=== PATIENT | female | born 1980 | race Caucasian/White ===

== ENCOUNTER 2020-08-03 01:39 | Day surgery (SDC) | payer OTHER ==
[~2020-08-03] VITALS: Ht 165.1 cm; Wt 90.9 kg
[2020-08-03] VITALS (7 sets, daily range): BP systolic 138–161; BP diastolic 67–89
--- NOTE | 2020-08-03 01:35 | HPEPDOC ---
[facility] Medical History & Physical Date of Admission Aug 03, 2020 Date of Service: Aug 03, 2020 History and Physical CHIEF COMPLAINT: L flank pain HISTORY OF PRESENT ILLNESS: 39 yo F with a hx of ADHD, transfered from [facility] where she was diagnosed with SIRS wo sepsis 2/2 an obstructing L ureteral stone with hydronephrosis. She had presented to [facility] initially on 07/19/20 for L flank pain, and CT and abdo US showed L ovarian cyst (2.5 cm, wo torsion), and non obstructing L renal stones. Patient returned to [facility] ER with worsening pain, and repeat CT showed an obstructing L ureteral stone with hydronephrosis. She was tachycardic with a WBC count 17.8, meeting SIRS criteria without sepsis. Vitals signs were otherwise intact, no fever. Patient was given 2L NS bolus and 1 g dose of ceftriaxone. Patient was transfered to [facility] for urology consultation, and patient's hx was reviewed by Dr. Lindsey. She is planned for OR in am on 08/03/19. At present, she reports 7/10 L flank pain, and denies dysuria, CP, SOB, palpitations, n/v/d or fever/chills. COVID negative prior to arrival from [facility] Patient admitted to hospitalist service with urology on consultation. PAST MEDICAL HISTORY: ADHD PAST SURGICAL HISTORY: section x 2 SOCIAL HISTORY: smokes 7 cigarettes per day denies etoh denies illicits FAMILY HISTORY: father - DM2 ALLERGIES: Please see below. REVIEW OF SYSTEMS: pertinent findings per [facility] HOME MEDICATIONS: Please see below. PHYSICAL EXAMINATION: VITAL SIGNS: please see below GENERAL APPEARANCE: crying in pain, sitting upright in bed. HEENT: PERRLA, EOMI. CARDIOVASCULAR: RRR, normal S1, S2. LUNGS: CTAB. ABDOMEN: L flank pain to palpation, mild. MUSCULOSKELETAL: no CVA tenderness bilaterally. EXTREMITIES: no edema. NEUROLOGICAL: no focal neuro deficits. PSYCHIATRIC: AAO x 3. LABORATORY DATA: See below. IMAGING: CT abdo on 08/02/20 (obtained at [facility]), report reviewed: L sided 8 mm obstructing ureteral stone with L sided hydronephrosis and perinephric stranding. MICROBIOLOGY: Please see below. ASSESSMENT: 39 yo w a hx of ADHD, transferred from [facility] where she was diagnosed with SIRS wo sepsis 2/2 an obstructing L ureteral stone with hydronephrosis. Dr. Lindsey was consulted, and patient is planned for OR in am. . PLAN: #SIRS 2/2 obstructing L ureteral stone w hydronephrosis - c/w NS 125 cc/hr - UA w reflex to cx - ceftriaxone 1g q24h - urology consulted, Dr. Lindsey taking pt to OR in am - tylenol for fevers DVT ppx: SCDs, TEDs. Early ambulation. Home Medications Scheduled Dextroamphetamine/Amphetamine (Adderall Xr 20 mg Capsule) 20 Mg Cap.er.24h, 1 CAP PO QAM Dextroamphetamine/Amphetamine (Adderall Xr 10 mg Capsule) 10 Mg Cap.er.24h, 1 CAP PO DAILY TAKES AT NOON Norgestimate-Ethinyl Estradiol (Norg-Ee 0.18-0.215-0.25/0.025) 1 Each Tablet, 1 TAB PO DAILY Scheduled PRN Oxycodone HCl/Acetaminophen (Oxycodone-Acetaminophen 5-325) 1 Each Tablet, 1 TAB PO Q4H PRN for PAIN Allergies Coded Allergies: No Known Allergies (Verified Allergy, Unknown, 08/03/20) A-FIB/CHADSVASC A-FIB History Current/History of A-Fib/PAF?: No Current PO Anticoag Therapy: No RYAN JUDD MD Aug 03, 2020 01:35
[2020-08-03] MEDS ORDERED: OXYC1TAB23 PO (02:38)
[2020-08-03] MEDS ORDERED: NORG1TAB4 PO (02:38)
[2020-08-03] MEDS ORDERED: ADDE20CA3 PO (02:38)
[2020-08-03] MEDS ORDERED: ADDE10CA3 PO (02:38)
[2020-08-03] MEDS ORDERED: MORPHINE 2 MG/ML 1ML VIAL (J2270) IV PRN (02:45)
--- NOTE | 2020-08-03 02:51 | HPEPDOC ---
[facility] Medical History & Physical Date of Admission Aug 03, 2020 Date of Service: Aug 03, 2020 History and Physical CHIEF COMPLAINT: L flank pain HISTORY OF PRESENT ILLNESS: 39 yo F with a hx of ADHD, transfered from [facility] where she was diagnosed with SIRS wo sepsis 2/2 an obstructing L ureteral stone with hydronephrosis. She had presented to [facility] initially on 07/19/20 for L flank pain, and CT and abdo US showed L ovarian cyst (2.5 cm, wo torsion), and non obstructing L renal stones. Patient returned to [facility] ER with worsening pain, and repeat CT showed an obstructing L ureteral stone with hydronephrosis. She was tachycardic with a WBC count 17.8, meeting SIRS criteria without sepsis. Vitals signs were otherwise intact, no fever. Patient was given 2L NS bolus and 1 g dose of ceftriaxone. Patient was transfered to [facility] for urology consultation, and patient's hx was reviewed by Dr. Lindsey. She is planned for OR in am on 08/03/19. At present, she reports 7/10 L flank pain, and denies dysuria, CP, SOB, palpitations, n/v/d or fever/chills. COVID negative prior to arrival from [facility] Patient admitted to hospitalist service with urology on consultation. PAST MEDICAL HISTORY: ADHD PAST SURGICAL HISTORY: section x 2 SOCIAL HISTORY: smokes 7 cigarettes per day denies etoh denies illicits FAMILY HISTORY: father - DM2 ALLERGIES: Please see below. REVIEW OF SYSTEMS: pertinent findings per [facility] HOME MEDICATIONS: Please see below. PHYSICAL EXAMINATION: VITAL SIGNS: please see below GENERAL APPEARANCE: crying in pain, sitting upright in bed. HEENT: PERRLA, EOMI. CARDIOVASCULAR: RRR, normal S1, S2. LUNGS: CTAB. ABDOMEN: L flank pain to palpation, mild. MUSCULOSKELETAL: no CVA tenderness bilaterally. EXTREMITIES: no edema. NEUROLOGICAL: no focal neuro deficits. PSYCHIATRIC: AAO x 3. LABORATORY DATA: See below. IMAGING: CT abdo on 08/02/20 (obtained at [facility]), report reviewed: L sided 8 mm obstructing ureteral stone with L sided hydronephrosis and perinephric stranding. MICROBIOLOGY: Please see below. ASSESSMENT: 39 yo w a hx of ADHD, transferred from [facility] where she was diagnosed with SIRS wo sepsis 2/2 an obstructing L ureteral stone with hydronephrosis. Dr. Lindsey was consulted, and patient is planned for OR in am. . PLAN: #SIRS 2/2 obstructing L ureteral stone w hydronephrosis - c/w NS 125 cc/hr - UA w reflex to cx - ceftriaxone 1g q24h - urology consulted, Dr. Lindsey taking pt to OR in am - tylenol for fevers DVT ppx: SCDs, TEDs. Early ambulation. Home Medications Scheduled Dextroamphetamine/Amphetamine (Adderall Xr 20 mg Capsule) 20 Mg Cap.er.24h, 1 CAP PO QAM Dextroamphetamine/Amphetamine (Adderall Xr 10 mg Capsule) 10 Mg Cap.er.24h, 1 CAP PO DAILY TAKES AT NOON Norgestimate-Ethinyl Estradiol (Norg-Ee 0.18-0.215-0.25/0.025) 1 Each Tablet, 1 TAB PO DAILY Scheduled PRN Oxycodone HCl/Acetaminophen (Oxycodone-Acetaminophen 5-325) 1 Each Tablet, 1 TAB PO Q4H PRN for PAIN Allergies Coded Allergies: No Known Allergies (Verified Allergy, Unknown, 08/03/20) A-FIB/CHADSVASC A-FIB History Current/History of A-Fib/PAF?: No Current PO Anticoag Therapy: No RYAN JUDD MD Aug 03, 2020 02:51
[2020-08-03] MEDS ORDERED: ACETAMINOPHEN TAB 650MG DOSE (2X325MG) PO PRN (03:00)
[2020-08-03] MEDS ORDERED: MOM 30ML SUSPENSION UDC PO PRN (03:00)
[2020-08-03] MEDS ORDERED: MAALOX 30 ML SUSP *UDC PO PRN (03:00)
[2020-08-03] MEDS: NS 1,000 ML IV SCH ×2 (03:03→10:50)
[2020-08-03] MEDS ORDERED: MORPHINE 2 MG/ML 1ML VIAL (J2270) IV ONE ×2 (03:30→06:15)
[2020-08-03] MEDS ORDERED: cefTRIAXone SOD 1 GM in D5W MINI-BAG PLUS 50 ML IV SCH (06:00)
[2020-08-03] MEDS ORDERED: ceFAZolin SOD 2 GM in IV 1 EA IV ONE (06:00)
[2020-08-03] MEDS ORDERED: KETOROLAC 30 MG/ML 1ML VIAL IV ONE (08:15)
[2020-08-03] MEDS ORDERED: DOCUSATE SODIUM 100MG CAPSULE PO SCH (09:00)
[2020-08-03 09:04] LABS: HEMATOCRIT 43.1 % (36.0-47.0); HEMOGLOBIN 14.2 g/dl (12.0-15.5); MEAN CORPUSCULAR HEMOGLOBIN 28.9 pg (27.0-33.0); MEAN CORPUSCULAR HGB CONC 32.9 g/dl (32.0-36.5); MEAN CORPUSCULAR VOLUME 87.8 fl (80.0-96.0); PLATELET COUNT, AUTOMATED 239 10^3/uL (150-450); RED BLOOD COUNT 4.91 10^6/uL (4.00-5.40)
[2020-08-03 09:27] LABS: ALBUMIN 3.3 GM/DL (3.2-5.2); BILIRUBIN,TOTAL 0.4 MG/DL (0.2-1.0); CALCIUM LEVEL 8.5 MG/DL (8.5-10.1); CREATININE FOR GFR 1.29 MG/DL (0.55-1.30); POTASSIUM SERUM 4.3 MEQ/L (3.5-5.1); TOTAL PROTEIN 6.5 GM/DL (6.4-8.2)
[2020-08-03] MEDS ORDERED: KETOROLAC 30 MG/ML 1ML VIAL IV PRN (10:45)
[2020-08-03] MEDS ORDERED: MORPHINE 4 MG/ML 1ML VIAL/SYRINGE (J2270) IV ONE (10:45)
[2020-08-03] MEDS ORDERED: LIDOCAINE 2% 100MG/5ML SDV (FOR ANES.) ONE ×2 (11:58→15:58)
[2020-08-03] MEDS ORDERED: CONRAY-60 60% 50ML VIAL (Q9961) ONE (15:48)
[2020-08-03] MEDS ORDERED: fentaNYL 100 MCG/2 ML INJECTION (J3010) ONE (15:57)
[2020-08-03] MEDS ORDERED: LIDOCAINE 2% MDV 20ML VIAL ONE (15:57)
[2020-08-03] MEDS ORDERED: propofoL 200 MG/20 ML VIAL ONE ×2 (15:57)
[2020-08-03] MEDS ORDERED: MIDAZOLAM INJ 2MG/2ML VIAL (J2250 PER 1MG) ONE ×2 (15:58)
[2020-08-03] MEDS ORDERED: ceFAZolin 2 GM/D5W 50 ML IV BAG (J0690 PER 500MG) ONE ×2 (16:05)
[2020-08-03] MEDS ORDERED: dexameTHASONE 4 MG/ML 1ML VIAL (J1100 PER 1MG) ONE (16:45)
[2020-08-03] MEDS ORDERED: ONDANSETRON 4MG/2ML VIAL ONE ×2 (16:45)
[2020-08-03] MEDS ORDERED: CONRAY-60 60% 50ML VIAL (Q9961) XX ONE (17:08)
--- NOTE | 2020-08-03 17:21 | SMCUROLCON ---
Urology Consultation General Date of Consultation 08/03/20 Reason For Consultation This patient is seen for Kidney Stone. History of Present Illness The patient is a 39-year-old female who presented to the emergency room for left flank pain. She states that her pain began on July 19 with left lower quadrant pain. She presented to the [facility] where an ultrasound was performed showing she had an ovarian cyst and no other abnormalities were noted other than nonobstructing left renal calculi. Over the next week, the pain persisted off and on but yesterday the pain became quite severe requiring another trip [facility]. This time a CT scan showed she has an 8 mm stone in the distal left ureter and [facility]. Past Medical History Medical History No prior history of renal calculi Surgical Hstory No previous surgeries of note Family History Significant Family History: No pertinent family hx Family History Family history of renal calculi Social History Social History Patient has 2 children, smokes 7 cigarettes a day, does not drink or use recreational drugs * Smoker: current smoker Alcohol: Denies Drugs: denies Medications Current Medications Current Medications Medications (Trade) Dose Ordered Sig/Kari Route PRN Reason Start Time Stop Time Status Last Admin Dose Admin Acetaminophen (Tylenol Tab) 650 mg Q4H PRN PO PAIN OR FEVER 08/03/20 01:30 Al Hydrox/Mg Hydrox/Simethicone (Mylanta) 30 ml DAILY PRN PO DYSPEPSIA 08/03/20 01:30 Ceftriaxone Sodium 1 gm/ Dextrose 50 ml @ 100 mls/hr Q24H IV 08/03/20 06:00 UNV Docusate Sodium (Colace) 100 mg BID PO 08/03/20 09:00 Enoxaparin Sodium (Lovenox) 40 mg DAILY SC 08/03/20 09:00 UNV Magnesium Hydroxide (Milk Of Magnesia) 30 ml DAILY PRN PO CONSTIPATION 08/03/20 01:30 Morphine Sulfate (Morphine Sulfate Inj) 2 mg Q4HP PRN IV MODERATE PAIN (PS 5-7) 08/03/20 01:30 Sodium Chloride 1,000 ml @ 125 mls/hr Q8H IV 08/03/20 01:45 Allergies Allergies: Coded Allergies: No Known Allergies (Verified Allergy, Unknown, 08/03/20) Review of Systems General: Reports: Normal Appetite; Denies: Fatigue, Malaise Constitutional: Denies: Fever, Chills, Sweats, Weakness, Malaise Eyes: Denies: Pain, Vision change ENT: Denies: Head Aches, Sore Throat, Epistaxis Skin: Denies: Rash, Lesions, Breakdown, Nail Changes Pulmonary: Denies: Dyspnea, Cough Cardiovascular: Denies Chest Pain, Denies Palpitations Gastrointestinal: Denies: Nausea, Vomiting, Abdominal Pain Genitourinary: Denies: Dysuria, Frequency, Incontinence, Hematuria Hematologic: Denies: Bruising, Bleeding Excessively Endocrine: Denies: Polydipsia, Polyphagia, Polyuria Musculoskeletal: Denies: Neck Pain, Back Pain Neurological: Denies: Weakness, Numbness, Incoordination, Change in Speech Psych: Reports: Mood Normal; Denies: Anxiety, Depression Physical Examination General Exam: Moderate Distress EYE EXAM: PERRLA, Conjunctiva & lids normal, EOMI; No: Sclera icteric ENT EXAM: Atraumatic, Mucous membr. moist/pink, Pharynx Normal Neck Exam: Supple; No: JVD, thyromegaly Chest Exam: Clear to auscultation, Normal air movement Abdomen Exam: Normal Bowel Sounds, Soft; No: Tenderness, Hepatospenomegaly Extremity Exam: Normal Pulses; No: Clubbing, Cyanosis, Edema Skin Exam: Nl turgor and temperature; No: Rash, Breakdown Neuro Exam: Normal Gait, Normal Speech, Cranial Nerves 3-12 NL, Reflexes 2+ Psych Exam: Mental status NL, Mood NL, Oriented x [address] scan confirms an 8 mm left UPJ calculus with hydronephrosis. Options were presented to the patient and she agreed to stent placement. Possible complications were discussed including infection, pain, bleeding and perforation and that this will not eliminate the stone with this procedure alone. She agreed to continue with the stent placement Plan Patient will be taken to the operating room for a cystoscopy left retrograde pyelogram and stent insertion. The stone can then be treated with extracorporeal shockwave lithotripsy at a later date. Time Spent on Consult: Time Spent / Consult (Minutes): 65 PAYAL BLANCA MD Aug 03, 2020 17:14
--- NOTE | 2020-08-03 17:25 | ROOPDOC ---
[facility] Report Of Operation Report of Operation DATE OF PROCEDURE: 08/03/20 PREPROCEDURE DIAGNOSES: Left UPJ calculus POSTPROCEDURE DIAGNOSES: Same PROCEDURE: Cystoscopy, left retrograde pyelogram and stent insertion, x-ray interpretation SURGEON: Ezequiel Lindsey MD BILLING SPECIALIST: None ANESTHESIA: Mac ESTIMATED BLOOD LOSS: Approximately 0 mL. COMPLICATIONS: None REMARKS: The stone was impacted at the UPJ making stent insertion difficult PROCEDURE NOTE: Prior to the operation, options were presented to the patient and she agreed to a stent insertion to be followed by ESWL DESCRIPTION OF PROCEDURE: Patient was placed on the table in the supine position and given a Mac anesthesia. She was then placed in lithotomy position, prepped with solution and draped in an aseptic manner. Timeout was then performed. A 22 Hungarian cystoscope was inserted into the meatus and advanced under direct vision of the 30 lens to the bladder. The bladder mucosa appeared normal and the residual orifices were in the normal anatomic position. Left ureteral orifice was then catheterized with a 5 Hungarian Pollick catheter and retrograde injection of diluted contrast showed the patient had an obstructing stone in the left UPJ area. A wire guide was passed around the stone up to the renal pelvis and a 5 Hungarian double-J stent was then passed over this wire. Passage into the renal pelvis was difficult because of the impaction of the ureteral stone but curled well when the wire was removed as did the bladder. The bladder was then drained, cystoscope was removed and the patient was awakened and sent to recovery room stable condition having tolerated procedure well. The patient will be scheduled for ESWL treatment of the left renal calculus Fluoroscopy was used and interpreted throughout the case to diagnose the stone, stone position, hydronephrosis and stent placement. EZEQUIEL LINDSEY MD Aug 03, 2020 17:25
--- NOTE | 2020-08-03 17:43 | REP ---
INDICATION: LEFT STENT PLACEMENT. COMPARISON: None TECHNIQUE: 23 seconds of fluoroscopy time was provided Dr. Lindsey for the exam. A single spot view of the abdomen was obtained using a portable C-arm device. FINDINGS: Puddles of contrast are seen in the region of the left kidney. The proximal portion of a double pigtail stent is seen in the region of the left kidney. IMPRESSION: As above <Electronically signed by Steven Cantu > 08/03/20 [id number]
[2020-08-03] MEDS ORDERED: fentaNYL 100 MCG/2 ML INJECTION (J3010) IV PRN (18:00)
[2020-08-03] MEDS ORDERED: ONDANSETRON 4MG/2ML VIAL IV PRN (18:00)
[2020-08-03] MEDS ORDERED: PERCOCET 5MG/325MG TAB PO PRN (18:00)
[2020-08-03] MEDS ORDERED: LR 1,000 ML IV SCH (18:00)
--- NOTE | 2020-08-03 18:42 | DS.PDOC ---
Discharge Summary General Date of Admission 08/03/20 Date of Discharge 07/12/21 Attending Physician: Shima Ann MD Discharge Summary HISTORY OF PRESENT ILLNESS: 39 yo F with a hx of ADHD, transfered from [facility] where she was diagnosed with SIRS wo sepsis 2/2 an obstructing L ureteral stone with hydronephrosis. She had presented to [facility] initially on 07/19/20 for L flank pain, and CT and abdo US showed L ovarian cyst (2.5 cm, wo torsion), and non obstructing L renal stones. Patient returned to [facility] ER with worsening pain, and repeat CT showed an obstructing L ureteral stone with hydronephrosis. She was tachycardic with a WBC count 17.8, meeting SIRS criteria without sepsis. Vitals signs were otherwise intact, no fever. Patient was given 2L NS bolus and 1 g dose of ceftriaxone. Patient was transfered to [facility] for urology consultation, and patient's hx was reviewed by Dr. Lindsey. She is planned for OR in am on 08/03/19. At present, she reports 7/10 L flank pain, and denies dysuria, CP, SOB, palpitations, n/v/d or fever/chills. COVID negative prior to arrival from [facility]. Patient admitted to hospitalist service with urology on consultation. HOSPITAL COURSE: Patient was taken to OR on 08/03/20 for pyelogram, stent placement. No issues intraoperative or postop. Pain had resolved post-op. VS remained stable. UA was neg, WBC believed to be reactive to stone. Patient was discharged home and advised to follow up with PCP and Dr. Lindsey urology office within 1-2 weeks after discharge. At discharge patient had no acute complaints. PAST MEDICAL HISTORY: ADHD PAST SURGICAL HISTORY: section x 2 SOCIAL HISTORY: smokes 7 cigarettes per day denies etoh denies illicits FAMILY HISTORY: father - DM2 ALLERGIES: Please see below. DISCHARGE MEDICATIONS: Please see below. PHYSICAL EXAMINATION: VITAL SIGNS: please see below GENERAL APPEARANCE: NAD, sitting up in bed HEENT: PERRLA, EOMI. CARDIOVASCULAR: RRR, normal S1, S2. LUNGS: CTAB. ABDOMEN: soft, nontender, obese, BS + in 4 quad MUSCULOSKELETAL: no CVA tenderness bilaterally. EXTREMITIES: no edema. NEUROLOGICAL: no focal neuro deficits. PSYCHIATRIC: AAO x 3. LABORATORY DATA: See below. IMAGING: Pyelogram- see notes CT abdo on 08/02/20 (obtained at [facility]), report reviewed: L sided 8 mm obstructing ureteral stone with L sided hydronephrosis and p erinephric stranding. MICROBIOLOGY: Bcx pending ASSESSMENT: 39 yo w a hx of ADHD admitted here for obstructing L ureteral stone with hydronephrosis s/p pyelogram, stent placement 08/03/20. PLAN: #Obstructing L ureteral stone w hydronephrosis s/p pyelogram, stent placement -Resolved pain and susequently resolved tachycardia with VS stable -WBC likely reactive to stone, unlikely truly sepsis 2/2 to infection- no identified UTI -Taking good PO, denies n/v -D/c home today to f/u with PCP and urology after discharge. -C/w home pain meds #ADHD -C/w home meds DISPOSITION: Discharge home today with f/u with urology, in improved condition. TIME SPENT ON DISCHARGE: Greater than 30 minutes. Vital Signs/I&Os Vital Signs Date Time Temp Pulse Resp B/P (MAP) Pulse Ox O2 Delivery O2 Flow Rate FiO2 08/03/20 18:29 98.8 67 18 147/76 (99) 97 Room Air Laboratory Data Labs 24H Laboratory Tests 2 08/03/20 08:20: Nucleated Red Blood Cells % (auto) 0.0, Anion Gap 7L, Glomerular Filtration Rate 49.0L, Calcium Level 8.5, Total Bilirubin 0.4, Aspartate Amino Transf (AST/SGOT) 15, Alanine Aminotransferase (ALT/SGPT) 23, Alkaline Phosphatase 59, Total Protein 6.5, Albumin 3.3, Albumin/Globulin Ratio 1.0L 08/03/20 08:48: Urine Color YELLOW, Urine Appearance CLEAR, Urine pH 5.0, Urine Specific [place] 1.023, Urine Protein NEGATIVE, Urine Glucose (UA) NEGATIVE, Urine Ketones 1+H, Urine Blood 2+H, Urine Nitrite NEGATIVE, Urine Bilirubin NEGATIVE, Urine Urobilinogen 0.2, Urine Leukocyte Esterase NEGATIVE, Urine WBC (Auto) 0, Urine RBC (Auto) 3, Urine Hyaline Casts (Auto) 0, Urine Bacteria (Auto) NEGATIVE, Urine Squamous Epithelial Cells 1, Urine Sperm (Auto) 08/03/20 09:16: Coronavirus (COVID-19)(PCR) NEGATIVE CBC/BMP Laboratory Tests 08/03/20 08:20 Microbiology Microbiology 08/03/20 Blood Culture, Received Pending 08/03/20 Blood Culture, Received Pending Discharge Medications Scheduled Dextroamphetamine/Amphetamine (Adderall Xr 20 mg Capsule) 20 Mg Cap.er.24h, 1 CAP PO QAM, (Reported) Dextroamphetamine/Amphetamine (Adderall Xr 10 mg Capsule) 10 Mg Cap.er.24h, 1 CAP PO DAILY, (Reported) TAKES AT NOON Norgestimate-Ethinyl Estradiol (Norg-Ee 0.18-0.215-0.25/0.025) 1 Each Tablet, 1 TAB PO DAILY, (Reported) Scheduled PRN Oxycodone HCl/Acetaminophen (Oxycodone-Acetaminophen 5-325) 1 Each Tablet, 1 TAB PO Q4H PRN for PAIN, (Reported) Allergies Coded Allergies: No Known Allergies (Verified Allergy, Unknown, 08/03/20) Shima Ann MD Aug 03, 2020 18:42
[2020-08-04] MEDS ORDERED: ENOXAPARIN 40MG/0.4ML SYRINGE (J1650 PER 10MG) SC SCH (09:00)
== END 2020-08-03 19:30 | disposition home or self-care (01) ==
LOC: M OPCLIPED 01:39 → M PED 02:10 → M OPCLIPED 19:30
PROVIDERS: ATTEND Family Medicine
DX: N13.2 Hydronephrosis with renal and ureteral calculous obstruction (principal); F90.9 Attention-deficit hyperactivity disorder, unspecified type; F17.218 Nicotine dependence, cigarettes, with other nicotine-induced disorders; Z79.899 Other long term (current) drug therapy
CPT/HCPCS: 36415; 52332; 74420; 80053; 81001; 85027; 87040; 96365; 96375; 96376; C1769; C2617; J0690; J0696; J1100; J1885; J2250; J2270; J2405; J3010; Q9961; U0002

== ENCOUNTER 2020-09-16 06:22 | Day surgery (SDC) | payer OTHER ==
[~2020-09-16] VITALS: Ht 165.1 cm; Wt 93.0 kg
[~2020-09-16 06:22] MED LIST: ADDE10CA3 PO; ADDE20CA3 PO; LIDOCAINE 1% MDV 20ML VIAL SQ PRN; NORG1TAB4 PO; OXYC1TAB23 PO
--- OUTSIDE RECORDS SUMMARY | 2020-09-16 06:25 | CCD ---
Author Author [facility] Organization [facility] [employer] [facility] Address Unknown Phone Unavailable Care Team Providers Care Waste Reclaimer Name Role Phone Laverne Grayson Unavailable PROBLEMS Type Condition ICD9-CM Code ZSN19-XU Code Onset Dates Condition S tatus SNOMED Code Notes Problem Kidney stone on left side N20.0 Active 902640 [id number] ALLERGIES No Known Allergies ENCOUNTERS from 1980 to 2020-08-17 Encounter Location Date Provider Diagnosis [facility] Urology [address] [place] [address] Jul Laverne Grayson Kidney stone on left side N20.0 IMMUNIZATIONS No Information SOCIAL HISTORY Tobacco Use: Social History Observation Description Date Details (start date - stop date) Current Smoker Sex Assigned At : Social History Observation Description Sex Assigned At Unknown Language: Question Answer Notes Languages spoken: Kinyarwanda Mu-Ism: Question Answer Notes Mu-Ism No latter day beliefs that would impact health care. Alcohol Screening: Question Answer Notes Did you have a drink containing alcohol in the past year? No Points 0 Interpretation Negative Tobacco Use: Question Answer Notes Are you a: current smoker How many cigarettes a day do you smoke? 5 or less REASON FOR REFERRAL No Information VITAL SIGNS No information MEDICATIONS Medication SIG (Take, Route, Frequency, Duration) Notes Start Da te End Date Status Colace 100 MG 1 capsule as needed Orally Once a day for 30 day(s) Not-Taking Adderall XR 20 MG 1 capsule in the morning Orally Once a day Active Bactrim DS 800-160 MG 1 tablet Orally Twice a day for 7 day(s) Mar, Not-Taking Acetaminophen 325 MG 2 capsule as needed Orally every 6 hrs Not-Taking Mylanta Not-Taking TriNessa Lo Active Morphine Sulfate (PF) 2 MG/ML 1 ml as needed Injection every 4 hrs Not-Taking Lovenox 40 MG/0.4ML 0.4 ml Subcutaneous Once a day for 30 day(s) Not-Taking Milk of Magnesia 2400 MG/30ML 5 ml at least 4 hours be tween doses as needed Orally Four times a day Not-Taki ng Percocet 5-325 MG 1 tablet as needed Orally every 6 hrs, MDD 4 14 Jul, 2020 Active PROCEDURES No Information RESULTS No Results REASON FOR VISIT KUB order MEDICAL (GENERAL) HISTORY Type Description Date Medical History Kidney stone Surgical History cysto, left retrograde pyelogram w/ sten t insertion 08/03/2020 Surgical History breast reduction Surgical History x 2 Goals Section No Information Health Concerns No Information MEDICAL EQUIPMENT No Information MENTAL STATUS No Information FUNCTIONAL STATUS No Information ASSESSMENTS Encounter Date Diagnosis Assessment Notes Treatment Notes Treatm ent Clinical Notes Jul, Kidney stone on left side (ICD-10 - N20.0) PLAN OF TREATMENT Medication Medication Name Sig Start Date Stop Date Percocet 5-325 MG 1 tablet as needed Orally every 6 hrs, MDD 4 1 4 Jul, 2020 Treatment Notes Test Name Order Date PLZ ABDOMEN 1 VIEW (KUB) 2020-08-17 Next Appt Details Provider Name:Laverne Grayson, 2020-09-21 2 08:30:00 AM, [address], [place], [address], Insurance Providers Payer Name Payer Address Payer Phone Insured Name Patient Relati onship to Insured Coverage Start Date Coverage End Date [facility] [employer] [id number] [id number] [place] [address]
--- OUTSIDE RECORDS SUMMARY | 2020-09-16 06:26 | CCD | Continuity of Care Document ---
Author Author [facility] Address [address] [place] [address] Phone Care Team Providers Care Starch Crab Name Role Phone CHAO ATKINSON PCP Allergies, Adverse Reactions, Alerts No allergy information available. Medications No medication information available. Problems No problem information available. Procedures Procedure Date Performed Status ABD/PEL WITH IV CONTRAST July 19, 2020 completed PELVIC COMPLETE TRANS ABDOMEN July 19, 2020 completed ABD/PEL WITH IV CONTRAST August 02, 2020 active Relevant Diagnostic Tests and/or Laboratory Data Laboratory Results Test Date/Time Result Interpretation Reference Range Result Co mment Performing Site White Blood Count August 02, 2020 3:09pm 17.1 4.0-10 .0 [facility], [address] [place] [address] Red Blood Count August 02, 2020 3:09pm 5.23 4.00-5.5 0 [facility], [address] [facility] [address] Hemoglobin August 02, 2020 3:09pm 15.7 12.0-16.0 [facility], [address] [facility] [address] Hematocrit August 02, 2020 3:09pm 43.4 36.0-48.8 [facility], [address] [facility] [address] Mean Corpuscular Volume August 02, 2020 3:09pm 83.0 80-96 [facility], [address] [facility] [address] Mean Corpuscular Hemoglobin August 02, 2020 3:09pm 30.0 27.0-31.0 [facility], [address] [facility] [address] Mean Corpuscular Hgb Concent Diff August 02, 2020 3:09pm 36.2 32.0-36.0 [facility], [address] [facility] [address] Red Cell Distribution Width August 02, 2020 3:09pm 11.4 10.0-14.5 [facility], [address] [facility] [address] Platelet Count August 02, 2020 3:09pm 247 172-450 [facility], [address] [place] [id number] Mean Platelet Volume August 02, 2020 3:09pm 10.6 9.0 -13.0 [facility], 4 [facility] [address] Granulocytes % (Auto) August 02, 2020 3:09pm 81.3 50 -80.0 [facility], [address] [facility] [address] Immature Granulocytes % August 02, 2020 3:09pm 0.1 0.0-0.2 [facility], [address] [facility] [address] Lymphocytes % August 02, 2020 3:09pm 12.0 25.0-50.0 [facility], [address] [facility] [address] Monocytes % August 02, 2020 3:09pm 6.1 2.0-10.0 [facility], [address] [facility] [address] Eosinophils % August 02, 2020 3:09pm 0.4 0-5.0 [facility], 4 [facility] [address] Basophils % August 02, 2020 3:09pm 0.1 0.0-2.0 [facility], [address] [facility] [address] Granulocytes # August 02, 2020 3:09pm 13.9 2.0-8.00 [facility], [address] [facility] [address] Immature Granulocytes # August 02, 2020 3:09pm 0.0 0.0-0.2 [facility], [address] [facility] [address] Lymphocytes # August 02, 2020 3:09pm 2.1 1.0-5.0 [facility], [address] [facility] [address] Monocytes # August 02, 2020 3:09pm 1.1 0.10-1.20 [facility], [address] [facility] [address] Eosinophils # August 02, 2020 3:09pm 0.1 0.0-0.5 [facility], [address] [facility] [address] Basophils # August 02, 2020 3:09pm 0.0 0.0-0.2 [facility], [address] [facility] [address] Prothrombin Time August 02, 2020 3:09pm 9.9 9.1-11. 6 [facility], [address] [facility] [address] INR International Normalized Ratio August 02, 2020 3:09pm 0.95 0.87-1.06 [facility], [address] [facility] [address] Partial Thromboplastin Time - Chema August 02, 2020 3:09pm 25.2 21.2-27.3 [facility], [address] [facility] [address] Urine Color August 02, 2020 2:58pm YELLOW [facility], [address] [facility] [address] Urine Appearance August 02, 2020 2:58pm CLOUDY [facility], [address] [facility] [address] Urine Glucose August 02, 2020 2:58pm NEGATIVE NEGATIVE [facility], 4 [facility] [address] Urine Bilirubin August 02, 2020 2:58pm NEGATIVE NEGATIVE [facility], [address] [facility] [address] Urine Ketones August 02, 2020 2:58pm 40(MODERATE) NEGATIV E [facility], 4 [facility] [address] Specific Bath August 02, 2020 2:58pm 1.020 1.001-1 .035 [facility], [address] [place] [address] Urine Blood August 02, 2020 2:58pm 1+(SMALL) NEGATIVE [facility], [address] [facility] [address] Urine pH August 02, 2020 2:58pm 7.5 5.0-9.0 [facility], [address] [facility] [address] Urine Protein August 02, 2020 2:58pm TRACE NEGATIVE [facility], [address] [facility] [address] Urine Urobilinogen August 02, 2020 2:58pm NORMAL(0.2-1) 0 -1 [facility], [address] [facility] [address] Urine Nitrite August 02, 2020 2:58pm NEGATIVE NEGATIVE [facility], [address] [facility] [address] Urine Leukocyte Esterase August 02, 2020 2:58pm NEGATIVE NEGATIVE [facility], [address] [facility] [address] Urine Microscopic RBC August 02, 2020 2:58pm 3-5 0- 3 [facility], [address] [place] [address] Urine Microscopic WBC August 02, 2020 2:58pm 0-2 0- 5 [facility], 4 [facility] [address] Urine Epithelial Cells August 02, 2020 2:58pm 1+ 0 [facility], [address] [place] [address] Urine Bacteria August 02, 2020 2:58pm 1+ NONE SEEN [facility], [address] [place] [address] Urine Amorphous Sediment August 02, 2020 2:58pm 2+ [facility], [address] [place] [address]779 Glucose Level August 02, 2020 3:09pm 104 74-106 [facility], [address] [place] [address] Lactic Acid Level August 02, 2020 3:09pm 1.3 0.4-2. 0 [facility], [address] [place] [address] Blood Urea Nitrogen August 02, 2020 3:09pm 13 7-18 [facility], [address] [place] [address] Creatinine August 02, 2020 3:09pm 1.15 0.6-1.0 [facility], [address] [place] [address] Sodium Level August 02, 2020 3:09pm 135 136-145 [facility], 4 [facility] [address] Potassium Level August 02, 2020 3:09pm 4.1 3.5-5.1 [facility], [address] [facility] [address] Chloride Level August 02, 2020 3:09pm 100 98-107 [facility], [address] [facility] [address] Carbon Dioxide Level August 02, 2020 3:09pm 24 21- 32 [facility], [address] [facility] [address] Calcium Level August 02, 2020 3:09pm 9.6 8.5-10.1 [facility], [address] [facility] [address] Anion Gap August 02, 2020 3:09pm 11.0 5-12 [facility], [address] [facility] [address] Estimated GFR (MDRD) August 02, 2020 3:09pm 53 GFR IS CALCULATED IN mL/min/1.73m2 NORMAL FUNCTION: >90MILDLY DECREASED: 60-89MILDY TO MODERATELY DECREASED: 45-59 MODERATELY TO SEVERELY DECREASED: 30-44SEVERELY DECREASED: 15-29RENAL FAILURE: <15 [facility], [address] [facility] [address] Aspartate Amino Transf (AST/SGOT) August 02, 2020 3:09pm 22 15-37 [facility], [address] [facility] [address] Alanine Aminotransferase (ALT/SGPT) August 02, 2020 3:09pm 28 12-78 [facility], [address] [facility] [address] Alkaline Phosphatase August 02, 2020 3:09pm 60 46- 116 [facility], [address] [facility] [address] Total Bilirubin August 02, 2020 3:09pm 0.5 0.2-1.0 [facility], [address] [facility] [address] Total Protein August 02, 2020 3:09pm 7.6 6.4-8.2 [facility], [address] [facility] [address] Albumin August 02, 2020 3:09pm 3.9 3.4-5.0 [facility], [address] [facility] [address] Lipase August 02, 2020 3:09pm 60 73-393 [facility], [address] [place] [address] Magnesium Level July 19, 2020 7:18am 1.9 1.8-2.4 [facility], [address] [place] [address] Coronavirus (COVID-19)(PCR) August 02, 2020 5:30pm NEGATIVE NEGATIVE Negative results should be treated as presumptive and, ifinconsistent with clinical signs and symptoms or necessaryfor patient management, should be tested with differentauthorized or cleared molecular tests.Negative results do not preclude SARS-CoV-2 infection andshould not be used as the sole basis for patient managementdecisions.This is a rapid molecular in vitro diagnostic test utilizingan isothermal nucleic acid amplification technology intendedfor the qualitative detection of nucleic acid from the SARS-CoV-2 viral RNA in direct nasal, nasopharyngeal orthroat swabs from individuals who are suspected of COVID-19.Results are for the indentification of SARS-CoV-2 RNA. [id number] RNA is generally detectable in respiratorysamples during the actue phase of infection. [facility], [address] [place] [address] Urine HCG, Qualitative August 02, 2020 2:58pm NEGATIVE N EGATIVE [facility], [address] [place] [address] Diagnostic Imaging Reports Report Dictated Date/Time Dictated By Status PS360 TEMPLATE July 19, 2020 10:43am BRENNA HURT Patient Name: YOSVANY ORDONEZ Unit#: [id number] Rad#: [id number] : 80 Status: REG ZHOU Alarcon MD: ALEJANDRINA NORWOOD Room/Bed Sex: Cristine ValienteValidation Leader: Lily Berg Date: 07/19/20 Report #: [id number] Signed - ABD/PEL WITH IV CONTRAST ORIGINAL REPORT DATE OF EXAMINATION: 07/19/2020 14:26 EST ABD/PEL WITH IV CONTRAST HISTORY: Pain left lower quadrant pain. TECHNIQUE: This CT exam was performed using the following dose reduction techniques: automated exposure control, adjustment of mA and/or kV according to the patient's size, and use of iterative reconstruction technique. Standard contiguous axial spiral imaging was obtained from the dome of the diaphragms through the symphysis pubis without oral contrast and with intravenous contrast administration and with coronal reformatting. FINDINGS: Lower thorax: Unremarkable ABDOMEN: Liver: Moderate fatty infiltration Gallbladder and bile ducts: Nonobstructive stones within the gallbladder lumen. The gallbladder is contracted. There is no gallbladder wall thickening or biliary dilatation Pancreas: Unremarkable Spleen: Unremarkable Adrenals: Unremarkable Kidneys and ureters: Punctate nonobstructive calculus in the upper pole of left kidney as well as a 0.6 cm nonobstructive stone in the inferior pole of left kidney Stomach and bowel: Unremarkable Appendix: No appendicitis PELVIS: Bladder: Unremarkable Reproductive: 2.5 cm left ovarian cyst as well as 2 cm cyst of right ovary. No free fluid or free air IMPRESSION: Follicular cyst of left ovary as described above measuring 2.5 cm. If there is any clinical concern for torsion ultrasound with Doppler interrogation would be recommended. 2. Nonobstructive stones of the left kid ana. Moderate fatty infiltration of liver. Nonobstructive stones within the gallbladder lumen. Electronically signed in PS360 by: Brenna Hurt M.D. 07/19/2020 16:03 EST PS360 TEMPLATE July 19, 2020 1:21pm HYACINTH NAIR eted Patient Name: YOSVANY ORDONEZ Unit#: [id number] Rad#: [id number] : 80 Status: DINA Alarcon MD: ALEJANDRINA NORWOOD @ Room/Bed Sex: F Validation Leader: KlaudiaStar Date: 07/19/20 Report #: [id number] Signed - PELVIC COMPLETE TRANS ABDOMEN ORIGINAL REPORT DATED ON EXAMINATION: 07/19/2020 16:43 EST PELVIC COMPLETE TRANS ABDOMEN HISTORY: Left pelvic pain. TECHNIQUE: Transabdominal Real-time ultrasound imaging was performed utilizing B-mode/haas scale and color Doppler imaging where applicable. FINDINGS: Normal bladder measures 11.3 x 8.3 x 8.9 cm. Normal anteverted uterus measures 11.2 x 4.0 x 4.5 cm. The endometrial complex measures 4 mm thickness. No discrete uterine or endometrial abnormalities are identified. The bilateral ovaries are essentially normal in appearance and vascularity without torsion. Right ovary measures 4.1 x 2.1 x 3.1 cm (RI 0.64) and includes 1.6 cm dominant follicle. Left ovary jose sures 3.9 x 1.7 x 2.5 cm (RI 0.69). No pelvic fluid or adnexal mass lesion. IMPRESSION: Normal pelvic ultrasound. Electronically signed in PS360 by: Hyacinth Nair M.D. 07/19/2020 18:23 EST Health Concerns No known health concerns documented Chief Complaint and Reason for Visit Reason for Visit LOWER LEFT ABDOMINAL PAIN Encounters Encounter Location(s) Arrival/Admit Date Discharge/Depart Date Provider(s) [facility] August 02, 2020 2:49pm August 02, 2020 7:20pm LISA MUNOZ [facility] July 19, 2020 6:57a m July 19, 2020 1:48pm ALEJANDRINA NORWOOD @[facility] No Assessments Information Available Functional Status No Functional Status information available Goals No Goals Information Available Immunizations No Immunization Information Available Mental Status No Mental Status Information Available Medical Equipment No Medical Equipment Information available Insurance Providers Guarantor YOSVANY ORDONEZ Address [address] [place] [address] Contact Info. Home Phone: Payer Policy Id Coverage Id Subscriber's Name Subscriber Id Effect benjamín Date Expiration Date [facility] [id number] [place] ORDONE[place] 2017 Plan of Treatment Future Tests Future scheduled test information is unavailable Pending Tests Test Name Date ordered BLOOD CULTURE August 02, 2020 5:37pm Future Visits Future appointment information is unavailable Referrals to Other Providers Referral information is unavailable Future Procedures Future procedure information is unavailable Future Medications Future medication information is unavailable Patient Instructions Patient instructions are unavailable Social History Assigned Sex Female Vital Signs No vital signs result information available.
--- OUTSIDE RECORDS SUMMARY | 2020-09-16 06:26 | CCD ---
Author Author [facility] [facility] Organization [facility] [employer] [facility] Address Unknown Phone Unavailable Care Team Providers Care Endoscopic Technician Name Role Phone CésarEzequiel Unavailable PROBLEMS Type Condition ICD9-CM Code [id number] Code Onset Dates Condition S tatus SNOMED Code Notes Problem Kidney stone on left side N20.0 Active 514536 [id number] ALLERGIES No Known Allergies ENCOUNTERS from 1980 to 2020-08-15 Encounter Location Date Provider Diagnosis [facility] [address] [place] [address] Jul Ezequiel Lindsey IMMUNIZATIONS No Information SOCIAL HISTORY Tobacco Use: Social History Observation Description Date Details (start date - stop date) Current Smoker Sex Assigned At : Social History Observation Description Sex Assigned At Unknown Language: Question Answer Notes Languages spoken: Ukrainian Worship: Question Answer Notes Worship No hindu beliefs that would impact health care. Alcohol [...] Information RESULTS No Results REASON FOR VISIT F/U Appt. MEDICAL (GENERAL) HISTORY Type Description Date Medical History Kidney stone Surgical History cysto, left retrograde pyelogram w/ sten t insertion 08/03/2020 Surgical History breast reduction Surgical History x 2 Goals Section No Information Health Concerns No Information MEDICAL EQUIPMENT No Information MENTAL STATUS No Information FUNCTIONAL STATUS No Information ASSESSMENTS No Information PLAN OF TREATMENT Medication Medication Name Sig Start Date Stop Date Percocet 5-325 MG 1 tablet as needed Orally every 6 hrs, MDD 4 1 4 Jul, 2020 Insurance Providers Payer Name Payer Address Payer Phone Insured Name Patient Relati onship to Insured Coverage Start Date Coverage End Date [facility] [id number] [facility] [id number] [place] ORDONE[place]
--- OUTSIDE RECORDS SUMMARY | 2020-09-16 06:26 | CCD ---
Author Author [facility] [employer] Organization [facility] [employer] Address Unknown Phone Unavailable Care Team Providers Care Home Care Scheduler Name Role Phone Laverne Grayson Unavailable PROBLEMS Type Condition ICD9-CM Code [id number] Code Onset Dates Condition S tatus SNOMED Code Notes Problem Kidney stone on left side N20.0 Active [id number] ALLERGIES No Known Allergies ENCOUNTERS from 1980 to 2020-08-10 Encounter Location Date Provider Diagnosis [facility] [address] [place] [address] Jul Laverne Recoandra Kidney stone on left side N20.0 and Pre- op testing Z01.818 IMMUNIZATIONS No Information SOCIAL HISTORY Tobacco Use: Social History Observation Description Date Details (start date - stop date) Current Smoker Sex Assigned At : Social History Observation Description Sex Assigned At Unknown Language: Question Answer Notes Languages spoken: Angolan Methodist: Question Answer Notes Methodist No orthodoxy beliefs that would impact health care. Alcohol Screening: Question Answer Notes Did you have a drink containing alcohol in the past year? No Points 0 Interpretation Negative Tobacco Use: Question Answer Notes Are you a: current smoker How many cigarettes a day do you smoke? 5 or less REASON FOR REFERRAL No Information VITAL SIGNS Weight 211 lbs Jul, Height 65 in Jul, BMI 35.11 kg/m2 Jul, Heart Rate 88 /min Jul, Respiratory Rate 18 /min Jul, Temperature 98.2 degrees Fahrenheit Jul, Oximetry 98% Jul, Blood pressure systolic 124 mm Hg Jul, Blood pressure diastolic 80 mm Hg Jul, MEDICATIONS Medication SIG (Take, Route, Frequency, Duration) [...] Information RESULTS No Results REASON FOR VISIT ER FU KIDNEY STONES MEDICAL (GENERAL) HISTORY Type Description Date Medical [...] stone on left side (ICD-10 - N20.0) Jul, Pre-op testing (ICD-10 - Z01.818) PLAN OF TREATMENT Medication Medication Name Sig Start Date Stop Date Percocet 5-325 MG 1 tablet as needed Orally every 6 hrs, MDD 4 1 4 Jul, 2020 Treatment Notes Test Name Order Date HCG SERUM QUALITATIVE 2020-08-10 CBC - Complete Blood Count 2020-08-10 PT & APTT 2020-08-10 URINE CULTURE 2020-08-10 UA URINALYSIS 2020-08-10 Basic Metabolic Profile (BMP) 2020-08-10 Insurance Providers Payer Name Payer Address Payer Phone Insured Name Patient Relati onship to Insured Coverage Start Date Coverage End Date [facility] [address] [facility] [id number] [place] ORDONEZ
--- OUTSIDE RECORDS SUMMARY | 2020-09-16 06:26 | CCD ---
Author Author [facility] Organization [facility] Address Unknown Phone Unavailable Care Team Providers Care Database Development Project Manager Name Role Phone ENMA, Angelica TINOCO PA Unavailable Unavailable ENMA, L ALEJANDRINA PA Unavailable Unavailable ENMA, L ALEJANDRINA PA Unavailable Unavailable ENMA, L ALEJANDRINA PA Unavailable Unavailable ENMA, L ALEJANDRINA PA Unavailable Unavailable ENMA, L ALEJANDRINA PA Unavailable Unavailable ENMA, L ALEJANDRINA PA Unavailable Unavailable ENMA, L ALEJANDRINA PA Unavailable Unavailable ENMA, L ALEJANDRINA PA Unavailable Unavailable ENMA, L ALEJANDRINA PA Unavailable Unavailable ENMA, L ALEJANDRINA PA Unavailable Unavailable ENMA, L ALEJANDRINA PA Unavailable Unavailable ENMA, L ALEJANDRINA PA Unavailable Unavailable ENMA, L ALEJANDRINA PA Unavailable Unavailable ENMA, L ALEJANDRINA PA Unavailable Unavailable ENMA, L ALEJANDRINA PA Unavailable Unavailable ENMA, L ALEJANDRINA PA Unavailable Unavailable ENAM, L ALEJANDRINA PA Unavailable Unavailable ENMA, L ALEJANDRINA PA Unavailable Unavailable Jojo Munoz Lisa DO Unavailable Unavailable Jojo Munoz Lisa DO Unavailable Unavailable Jojo Munoz Lisa DO Unavailable Unavailable Jojo Munoz Lisa DO Unavailable Unavailable oJjo Munoz Lisa DO Unavailable Unavailable MunozJojo Lisa DO Unavailable Unavailable Jojo Munoz Lisa DO Unavailable Unavailable Jojo Munoz Lisa DO Unavailable Unavailable Munoz B Lisa DO Unavailable Unavailable Armando B Lisa DO Unavailable Unavailable Armando B Lisa DO Unavailable Unavailable Munoz B Lisa DO Unavailable Unavailable Munoz B Lisa DO Unavailable Unavailable Munoz B Lisa DO Unavailable Unavailable MunozJojo Lisa DO Unavailable Unavailable PASCUAL MUNOZ LISA Unavailable Unavailable [facility], [id number] Unavailable [phone] [facility]85, [id number] Unavailable [facility]85, [id number] Unavailable [facility], [id number] Unavailable [facility], [id number] Unavailable [facility], [id number] Unavailable [facility], [id number] Unavailable [facility], [id number] Unavailable [facility], [id number] Unavailable [facility], [id number] Unavailable [facility], [id number] Unavailable [facility], [phone] [facility] Un[facility] Unavailable Re-disclosure Warning The records that you are about to access may contain information from federally-assisted alcohol or drug abuse programs. If such information is present, then the following federally mandated warning applies: This information has been disclosed to you from records protected by federal confidentiality rules (42 CFR part 2). The federal rules prohibit you from making any further disclosure of this information unless further disclosure is expressly permitted by the written consent of the person to whom it pertains or as otherwise permitted by 42 CFR part 2. A general authorization for the release of medical or other information is NOT sufficient for this purpose. The Federal rules restrict any use of the information to criminally investigate or prosecute any alcohol or drug abuse patient.The records that you are about to access may contain highly sensitive health information, the redisclosure of which is protected by Article 27-F of the [facility] Public Health law. If you continue you may have access to information: Regarding HIV / AIDS; Provided by facilities licensed or operated by the [facility] Office of Mental Health; or Provided by the [facility] Office for People With Developmental Disabilities. If such information is present, then the following [facility] mandated warning applies: This information has been disclosed to you from confidential records which are protected by state law. State law prohibits you from making any further disclosure of this information without the specific written consent of the person to whom it pertains, or as otherwise permitted by law. Any unauthorized further disclosure in violation of state law may result in a fine or long-term sentence or both. A general authorization for the release of medical or other information is NOT sufficient authorization for further disc losure. Encounters Encounter Providers Location Date Indications Data Source(s ) Unknown [address] [facility] [address] 08/16/2020 12:00:00 AM EST eCW1 ([facility]) Outpatient [address] [facility] [place] [address] 08/05/2020 12:00:00 AM EST eCW1 ([facility]) Unknown [address] [facility] [address] 08/04/2020 12:00:00 AM EST eCW1 ([facility]) Outpatient Attender: Lisa Munoz DOConsultant: [facility] [id number] 08/02/2020 10:00:00 PM [facility] Emergency Attender: LISA MUNOZReferrer: [phone] [facility] EMERG[facility]Y [facility]-ER 08/02/2020 08:19:00 PM EST - 08/03/2020 12:20:00 AM [facility] Patient discharged. Emergency Attender: ALJEANDRINA NORWOOD PAReferrer: [phone] [facility]ER 07/19/2020 01:27:00 PM EST - 07/19/2020 06:48:00 PM [facility] Patient discharged. Medications Medication Brand Name Start Date Product Form Dose Route Admi nistrative Instructions Pharmacy Instructions Status Indications Reaction Description Data Source(s) Sulfamethoxazole 800 MG / Trimethoprim 160 MG Oral Tab let 800-160 mg SULFAMETHOXAZOLE/TRIMETHOPRIM 09/13/2020 12:00:00 AM EST tablet 20 TAKE ONE TABLET BY MOUTH TWICE A DAY FOR 10 DAYS TAKE ONE TABLET BY MOUTH TWICE A DAY FOR 10 DAYS SOLD: 09/14/2020 [facility] Acetaminophen 325 MG / Oxycodone Hydroch loride 5 MG Oral Tablet [Percocet] Percocet 5-325 MG Percocet 5-325 MG 08/05/2020 12:00:00 AM EST 1 .0 {tablet_as_needed} active Percocet 5-32 5 MG [facility] Acetaminophen 325 MG / Oxycodone Hydroch loride 5 MG Oral Tablet [Percocet] Percocet 5-325 MG Percocet 5-325 MG 08/05/2020 12:00:00 AM EST 1 .0 {tablet_as_needed} active Percocet 5-32 5 MG eCW1 [facility]) Acetaminophen 325 MG / Oxycodone Hydroch loride 5 MG Oral Tablet [Percocet] Percocet 5-325 MG Percocet 5-325 MG 08/05/2020 12:00:00 AM EST 1 .0 {tablet_as_needed} active Percocet 5-32 5 MG [facility]CW1 [facility]) 5-325 mg 08/05/2020 12:00:00 AM EST tablet 28 TAKE ONE TABLET BY MOUTH EVERY 6 HOURS NEEDED MAXIMUM DAILY DOSE = 4 TAKE ONE TABLET BY MOUTH EVERY 6 HOURS NEEDED MAXIMUM DAILY DOSE = 4 SOLD: 08/05/2020 [facility] 5-325 mg 07/19/2020 12:00:00 AM EST tablet 12 TAKE 1-2 TABLETS BY MOUTH EVERY 4 TO 6 HOURS WHILE AWAKE MAXIMUM DAILY DOSE = 12 TAKE 1-2 TABLETS BY MOUTH EVERY 4 TO 6 HOURS WHILE AWAKE MAXIMUM DAILY DOSE = 12 SOLD: 07/19/2020 [facility] Insurance Providers Payer name Policy type / Coverage type Policy ID Covered alliance party ID Covered alliance party's relationship to tran Policy Tran Plan Information [facility] [id number] [facility] [id number] [facility] [id number] [facility] [id number] [facility] [id number] SPO [id number] [facility] [id number] [facility] [id number] [facility] [id number] Problems, Conditions, and Diagnoses Code Display Name Description Problem Type Effective Dates Data Source(s) N20.0 Kidney stone Kidney stone on left side Problem 08/05/19 12:00:00 AM EST [facility]CW1 [facility]) Z79.899 Other moth exterminator (current) drug therapy O THER MCC (CURRENT) DRUG THERAPY Diagnosis 08/02/2020 08:19:00 PM [facility] Z79.3 moth exterminator (current) use of hormonal cont raceptives 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 Diagnosis 08/02/2020 08:19:00 PM [facility] Z20.822 CONTACT WITH AND (SUSPECTED) EXPOSURE TO COVID-19 CONTACT WITH AND (SUSPECTED) EXPOSURE TO COVID-19 Diagnosis 08/02/2020 08:19:00 PM [facility] F17.210 Nicotine dependence, cigarettes, uncompl icated NICOTINE DEPENDENCE, CIGARETTES, UNCOMPLICATED Diagnosis 08/02/2020 08:19:00 PM [facility] N83.201 UNSPECIFIED OVARIAN CYST, RIGHT SIDE UNS PECIFIED OVARIAN CYST, RIGHT SIDE Diagnosis 08/02/2020 08:19:00 PM [facility] N13.2 Hydronephrosis with renal and ureteral c alculous obstruction HYDRONEPHROSIS WITH RENAL AND URETERAL CALCULOUS O Diagnosis 05/2021 08:19:00 PM [facility] K80.20 Calculus of gallbladder without cholecys titis without obstruction CALCULUS OF GALLBLADDER W/O CHOLECYSTITIS W/O OBST Diagnosis 05/2021 08:19:00 PM [facility] R10.32 Left lower quadrant pain LEFT LOWER QUADRANT PAIN Diag nosis 08/02/2020 08:19:00 PM [facility] N83.202 UNSPECIFIED OVARIAN CYST, LEFT SIDE UNSPECIFIED OVARIAN CYST, LEFT SIDE Diagnosis 07/19/2020 01:27:00 PM [facility] Results ID Date Data Source [id number] 08/19/2020 11:12:00 PM [facility] Patient: YOSVANY ORDONEZ Observation Rep ort - [facility].VisitID: [id number] [place] [address] [phone], FRegistration Date/Time: 07/19/2020 11:57 Weight:90.7 kg (S). Height/Length:65 inches (S). BMI:33.3 (Electronically signed by Lisa Munoz DO 08/10/2020 12:51) Weight:90.7 kg (S). Height/Length:65 inches (S). BMI:33.3 PAST HISTORYProblems:ADHD - Attention Deficit Hyperactivity Disorder. Additional Surgeries:. Medications: Control Pills 1 pill, daily every AM.Adderall XR Oral (Capsule Extended Release 24 Hour 20 mg) 1 capsule, daily every AM. Allergies:None. FAMILY HISTORYNegative. No significant family medical history. (Electronically signed by Cyrus Flores 07/20/2020 15:45) Name Value Range Interpretation Code Description Data Rita rce(s) Supporting Document(s) ID Date Data Source [id number] 08/03/2020 09:16:00 AM EST [facility] Name Value Range Interpretation Code Description Data Rita rce(s) Supporting Document(s) SARS coronavirus 2 RNA [Presence] in Res piratory specimen by NIKA with probe detection NEGATIVE [facility] This lab was ordered by [facility] a nd reported by [facility]. ID Date Data Source [id number] 08/03/2020 07:15:00 AM EST [facility] SCAN OF THE ABDOMEN AND PELVIS WITH C ONTRAST DATE OF EXAMINATION: 08/02/2020 20:15 EST ABD/PEL WITH IV CONTRAST INDICATION: Left lower quadrant pain COMPARISON: 07/19/2020 CONTRAST: 75 cc Omnipaque 300 TECHNIQUE: Axial images were obtained through the abdomen and pelvis from thelung bases through the rectum following the intravenous injection of contrast. One or more of the following dose reduction techniques were utilized ineffectively lowering the radiation dose for this examination: Automated ExposureControl, Adjustment of the mA and/or kV according to patient size, or Iterativereconstruction. ABDOMEN FINDINGS: The lung bases appear unremarkable. The liver is mildlydiminished in attenuation consistent with fatty change. The spleen, pancreas,adrenal glands, and right kidney appear normal. There is left- sidedhydronephrosis and perinephric soft tissue stranding. There is a 5.4 mm stone atthe left UPJ. There is also a punctate nonobstructing stone in the upper pole ofthe left kidney.. Abdominal aorta is unremarkable. No adenopathy, ascites, orabnormal intra-abdominal masses are identified. Visualized stomach, small bowel,and colon are unremarkable. PELVIC FINDINGS: There is a 3.3 x 2.6 x 3.5 cm right adnexal cyst. This could bebetter evaluated sonographically. No free air, free fluid, or pelvic adenopathy.The visualized bowel and urinary bladder are unremarkable. IMPRESSION:1. Left-sided obstructive uropathy with a 5.4 mm stone at the left UPJ withleft-sided hydronephrosis and perinephric soft tissue stranding.2. Right adnexal cyst which could be better evaluated sonographically. Electronically signed in PS360 by: Colton Quiroz M.D. 08/03/2020 7:09 EST Name Value Range Interpretation Code Description Data Rita rce(s) Supporting Document(s) ID Date Data Source [id number] 08/03/2020 12:49:00 AM EST [facility] Patient: YOSVANY ORDONEZ Observation Rep ort - [facility].VisitID: [id number] [place] [address] [phone], FRegistration Date/Time: 08/02/2020 19:49 Weight:90.7 kg (S). Height/Length:65 inches (S). BMI:33.3 PAST HISTORYMedications:Adderall XR Oral (Capsule Extended Release 24 Hour 20 mg) 1 capsule, daily every AM, last dose 08/02/2019 1100. Control Pills 1 pill, daily every AM, last dose today. Allergies:None. FAMILY HISTORYNegative - denies family medical history. (Electronically signed by Lisa Munoz MD 08/03/2020 00:39) Name Value Range Interpretation Code Description Data Rita rce(s) Supporting Document(s) ID Date Data Source [id number] 08/09/2020 11:17:00 AM EST [facility] Name Value Range Interpretation Code Description Data Rita rce(s) Supporting Document(s) [facility] ID Date Data Source [id number] 08/09/2020 11:17:00 AM EST [facility] Name Value Range Interpretation Code Description Data Rita rce(s) Supporting Document(s) [facility] ID Date Data Source [id number] 08/02/2020 10:30:00 PM EST [facility] Name Value Range Interpretation Code Description Data Rita rce(s) Supporting Document(s) COVID-19 NEGATIVE [facility] This lab was ordered by [facility] and reported by [facility]. ID Date Data Source [id number] 08/02/2020 10:47:00 PM EST [facility] TSYSORDER [id number] Name Value Range Interpretation Code Description Data Rita rce(s) Supporting Document(s) COVID-19 NEGATIVE NEGATIVE [facility] Negative results should be treated as pr esumptive and, ifinconsistent with clinical signs and symptoms [...] are for the indentification of SARS-CoV-2 RNA. XfhICIL-ZnQ-3 RNA is generally detectable in respiratorysamples during the actue phase of infection. ID Date Data Source [id number] 08/02/2020 08:50:00 PM EST [facility] TSYSORDER [id number] Name Value Range Interpretation Code Description Data Rita rce(s) Supporting Document(s) PROTHROMBIN TIME (PATIENT) 9.9 SECONDS 9.1-11.6 [facility] INR 0.95 0.87-1.06 [facility] ID Date Data Source [id number] 08/02/2020 08:50:00 PM EST [facility] TSYSORDER [id number] Name Value Range Interpretation Code Description Data Rita rce(s) Supporting Document(s) PARTIAL THROMBOPLASTIN TIME 25.2 SECONDS 21.2-27.3 [facility] ID Date Data Source [id number] 08/02/2020 08:46:00 PM EST [facility] TSYSORDER [id number] Name Value Range Interpretation Code Description Data Rita rce(s) Supporting Document(s) LACTIC ACID 1.3 mmol/L 0.4-2.0 [facility] ID Date Data Source [id number] 08/02/2020 08:46:00 PM [facility] TSYSORDER [id number] Name Value Range Interpretation Code Description Data Rita rce(s) Supporting Document(s) LIPASE 60 U/L 73-393 L [facility] ID Date Data Source [id number] 08/02/2020 08:46:00 PM [facility] TSYSORDER [id number] Name Value Range Interpretation Code Description Data Rita rce(s) Supporting Document(s) GLUCOSE 104 mg/dL 74-106 [facility] BLOOD UREA NITROGEN 13 mg/dL 7-18 [facility] ital CREATININE 1.15 mg/dL 0.6-1.0 H [facility] SODIUM 135 mmol/L 136-145 L [facility] POTASSIUM 4.1 mmol/L 3.5-5.1 [facility] CHLORIDE 100 mmol/L 98-107 [facility] CO2 24 mmol/L 21-32 [facility] CALCIUM 9.6 mg/dL 8.5-10.1 [facility] ANION GAP 11.0 mmol/L 5-12 [facility] GLOMERULAR FILTRATION RATE 53 mL/min [facility] GFR IS CALCULATED IN mL/min/1.73m2 LUIGI L FUNCTION: >90MILDLY DECREASED: 60-89MILDY TO MODERATELY DECREASED: 45-59 MODERATELY TO SEVERELY DECREASED: 30-44SEVERELY DECREASED: 15-29RENAL FAILURE: <15 AST 22 U/L 15-37 [facility] ALT 28 U/L 12-78 [facility] ALKALINE PHOSPHATASE 60 U/L 46-116 [facility] pital TOTAL BILIRUBIN 0.5 mg/dL 0.2-1.0 [facility] TOTAL PROTEIN 7.6 g/dl 6.4-8.2 [facility] ALBUMIN 3.9 gm/dL 3.4-5.0 [facility] ID Date Data Source [id number] 08/02/2020 08:15:00 PM [facility] TSYSORDER [id number] Name Value Range Interpretation Code Description Data Rita rce(s) Supporting Document(s) WHITE BLOOD COUNT 17.1 K/mm3 4.0-10.0 [facility] RED BLOOD COUNT 5.23 M/mm3 4.00-5.50 [facility] l HEMOGLOBIN 15.7 gm/dL 12.0-16.0 [facility] HEMATOCRIT 43.4 % 36.0-48.8 [facility] MEAN CELL VOLUME 83.0 fl 80-96 [facility] CORPUSCULAR HEMOGLOBIN 30.0 pg 27.0-31.0 [facility] MEAN CORPUSCULAR HGB CONC 36.2 g/dl 32.0-36.0 H [facility] RED CELL DISTRIBUTION WIDTH 11.4 % 10.0-14.5 [facility] PLATELET COUNT 247 K/mm3 172-450 [facility] MEAN PLATELET VOLUME 10.6 fl 9.0-13.0 [facility] pital GRAN % 81.3 % 50-80.0 H [facility] IG% 0.1 % 0.0-0.2 [facility] LYMPH % 12.0 % 25.0-50.0 L [facility] MONO % 6.1 % 2.0-10.0 [facility] EOS % 0.4 % 0-5.0 [facility] BASO % 0.1 % 0.0-2.0 [facility] GRAN # 13.9 K/mm3 2.0-8.00 H [facility] IG# 0.0 K/mm3 0.0-0.2 [facility] LYMPH # 2.1 K/mm3 1.0-5.0 [facility] MONO # 1.1 K/mm3 0.10-1.20 [facility] EOS # 0.1 K/mm3 0.0-0.5 [facility] BASO # 0.0 K/mm3 0.0-0.2 [facility] ID Date Data Source [id number] 08/02/2020 08:59:00 PM EST [facility] TSYSORDER [id number] Name Value Range Interpretation Code Description Data Rita rce(s) Supporting Document(s) URINE RBC 3-5 /hpf 0-3 H [facility] URINE WBC 0-2 /hpf 0-5 H [facility] URINE EPITHELIAL CELLS 1+ /hpf 0 [facility] URINE BACTERIA 1+ NONE SEEN [facility] URINE AMORPHOUS SEDIMENT 2+ [facility] ID Date Data Source [id number] 08/02/2020 08:59:00 PM EST [facility] TSYSORDER [id number] Name Value Range Interpretation Code Description Data Rita rce(s) Supporting Document(s) URINE COLOR. YELLOW [facility] URINE APPEARANCE CLOUDY [facility] URINE GLUCOSE (UA) NEGATIVE mg/dL NEGATIVE [facility] URINE BILIRUBIN NEGATIVE NEGATIVE [facility] URINE KETONE 40(MODERATE) mg/dL NEGATIVE [facility] spital SPECIFIC GRAVITY,URINE 1.020 1.001-1.035 [facility] URINE BLOOD 1+(SMALL) NEGATIVE [facility] PH,URINE 7.5 5.0-9.0 [facility] URINE PROTEIN TRACE mg/dL NEGATIVE [facility] URINE UROBILINOGEN NORMAL(0.2-1) mg/dL 0-1 [facility] URINE NITRATE NEGATIVE NEGATIVE [facility] URINE LEUKOCYTE ESTERASE NEGATIVE NEGATIVE [facility] ID Date Data Source [id number] 08/02/2020 07:58:00 PM [facility] TSYSORDER [id number] Name Value Range Interpretation Code Description Data Rita rce(s) Supporting Document(s) HCG URINE NEGATIVE NEGATIVE [facility] ID Date Data Source [id number] 07/19/2020 06:28:00 PM [facility] DATED ON EXAMINATION: 07/19/2020 16:[address] PELVIC COMPLETE TRANS ABDOMEN HISTORY: Left pelvic pain. TECHNIQUE: Transabdominal Real-time ultrasound imaging was performed utilizingB-mode/haas scale and color Doppler imaging where applicable. FINDINGS:Normal bladder measures 11.3 x 8.3 x 8.9 cm. Normal anteverted uterus measures 11.2 x 4.0 x 4.5 cm. The endometrial complexmeasures 4 mm thickness. No discrete uterine or endometrial abnormalities areidentified. The bilateral ovaries are essentially normal in appearance and vascularitywithout torsion. Right ovary measures 4.1 x 2.1 x 3.1 cm (RI 0.64) and includes1.6 cm dominant follicle. Left ovary measures 3.9 x 1.7 x 2.5 cm (RI 0.69). No pelvic fluid or adnexal mass lesion. IMPRESSION:Normal pelvic ultrasound. Electronically signed in PS360 by: Perico Bustamante M.D. 07/19/2020 18:23 EST Name Value Range Interpretation Code Description Data Rita rce(s) Supporting Document(s) ID Date Data Source [id number] 07/19/2020 04:08:00 PM [facility] DATE OF EXAMINATION: 07/19/2020 14:26 ES T ABD/PEL WITH IV CONTRAST HISTORY: Pain left lower quadrant pain. TECHNIQUE: This CT exam was performed using the following dose reduction techniques:automated exposure control, adjustment of mA and/or kV according to thepatient's size, and use of iterative reconstruction technique. Standard contiguous axial spiral imaging was obtained from the dome of thediaphragms through the symphysis pubis without oral contrast and withintravenous contrast administration and with coronal reformatting. FINDINGS: Lower thorax: Unremarkable ABDOMEN: Liver: Moderate fatty i nfiltrationGallbladder and bile ducts: Nonobstructive stones within the gallbladder lumen.The gallbladder is contracted. There is no gallbladder wall thickening orbiliary dilatationPancreas: UnremarkableSpleen: UnremarkableAdrenals: UnremarkableKidneys and ureters: Punctate nonobstructive calculus in the upper pole of leftkidney as well as a 0.6 cm nonobstructive stone in the inferior pole of leftkidneyStomach and bowel: UnremarkableAppendix: No appendicitis PELVIS: Bladder: UnremarkableReproductive: 2.5 cm left ovarian cyst as well as 2 cm cyst of right ovary. No free fluid or free air IMPRESSION: Follicular cyst of left ovary as described above measuring 2.5 cm. If there isany clinical concern for torsion ultrasound with Doppler interrogation would berecommended. 2. Nonobstructive stones of the left kidney. Moderate fatty infiltration of liver. Nonobstructive stones within the gallbladder lumen. Electronically signed in PS360 by: Brenna Hurt M.D. 07/19/2020 16:03 EST Name Value Range Interpretation Code Description Data Rita rce(s) Supporting Document(s) ID Date Data Source [id number] 07/19/2020 01:16:00 PM EST [facility] TSYSORDER [id number] Name Value Range Interpretation Code Description Data Rita rce(s) Supporting Document(s) MAGNESIUM 1.9 mg/dL 1.8-2.4 [facility] ID Date Data Source [id number] 07/19/2020 01:16:00 PM EST [facility] TSYSORDER [id number] Name Value Range Interpretation Code Description Data Rita rce(s) Supporting Document(s) LIPASE 65 U/L 73-393 L [facility] ID Date Data Source [id number] 07/19/2020 01:16:00 PM [facility] TSYSORDER [id number] Name Value Range Interpretation Code Description Data Rita rce(s) Supporting Document(s) GLUCOSE 91 mg/dL 74-106 [facility] BLOOD UREA NITROGEN 12 mg/dL 7-18 [facility] ital CREATININE 0.87 mg/dL 0.6-1.0 [facility] SODIUM 137 mmol/L 136-145 [facility] POTASSIUM 4.0 mmol/L 3.5-5.1 [facility] CHLORIDE 100 mmol/L 98-107 [facility] [facility] CO[facility] 25 mmol/L 21-32 [facility] CALCIUM 9.5 mg/dL 8.5-10.1 [facility] ANION GAP 12.0 mmol/L 5-12 [facility] GLOMERULAR FILTRATION RATE 72 mL/min [facility] GFR IS CALCULATED IN mL/min/1.73m2 LUIGI L FUNCTION: >90MILDLY DECREASED: 60-89MILDY TO MODERATELY DECREASED: 45-59 MODERATELY TO SEVERELY DECREASED: 30-44SEVERELY DECREASED: 15-29RENAL FAILURE: <15 AST 17 U/L 15-37 [facility] ALT 29 U/L 12-78 [facility] ALKALINE PHOSPHATASE 66 U/L 46-116 [facility] pital TOTAL BILIRUBIN 0.4 mg/dL 0.2-1.0 [facility] TOTAL PROTEIN 6.8 g/dl 6.4-8.2 [facility] ALBUMIN 3.8 gm/dL 3.4-5.0 [facility] ID Date Data Source [id number] 07/[id number] Name Value Range Interpretation Code Description Data Rita rce(s) Supporting Document(s) HCG,SERUM NEGATIVE NEGATIVE [facility] False negative results may occur when th e levels of hCG arebelow the sensitivity level of the test. If isstill suspected, a first morning urine specimen should becollected 48hrs later.This test has a sensitivity of 10mIU/mL in serum vhq09uIT/mL in urine. ID Date Data Source [id number] 07/19/2020 12:51:00 [facility] [id number] Name Value Range Interpretation Code Description Data Rita rce(s) Supporting Document(s) PARTIAL THROMBOPLASTIN TIME 25.9 SECONDS 21.2-27.3 [facility] ID Date Data Source [id number] 07/19/2020 12:51:00 PM [facility] l TSYSORDER [id number] Name Value Range Interpretation Code Description Data Rita rce(s) Supporting Document(s) PROTHROMBIN TIME (PATIENT) 10.1 SECONDS 9.1-11.6 [facility] INR 0.97 0.87-1.06 [facility] ID Date Data Source [id number] 07/19/2020 12:32:00 PM [facility] l TSYSORDER [id number] Name Value Range Interpretation Code Description Data Rita rce(s) Supporting Document(s) WHITE BLOOD COUNT 13.5 K/mm3 4.0-10.0 [facility] RED BLOOD COUNT 5.38 M/mm3 4.00-5.50 [facility] HEMOGLOBIN 15.8 gm/dL 12.0-16.0 [facility] HEMATOCRIT 45.0 % 36.0-48.8 [facility] MEAN CELL VOLUME 83.6 fl 80-96 [facility] MEAN CORPUSCULAR HEMOGLOBIN 29.4 pg 27.0-31.0 [facility] MEAN CORPUSCULAR HGB CONC 35.1 g/dl 32.0-36.0 [facility] RED CELL DISTRIBUTION WIDTH 11.3 % 10.0-14.5 [facility] PLATELET COUNT 261 K/mm3 172-450 [facility] MEAN PLATELET VOLUME 10.4 fl 9.0-13.0 [facility] pital GRAN % 80.2 % 50-80.0 H [facility] IG% 0.2 % 0.0-0.2 [facility] LYMPH % 16.1 % 25.0-50.0 L [facility] MONO % 3.2 % 2.0-10.0 [facility] EOS % 0.2 % 0-5.0 [facility] BASO % 0.1 % 0.0-2.0 [facility] GRAN # 10.8 K/mm3 2.0-8.00 H [facility] IG# 0.0 K/mm3 0.0-0.2 [facility] LYMPH # 2.2 K/mm3 1.0-5.0 [facility] MONO # 0.4 K/mm3 0.10-1.20 [facility] EOS # 0.0 K/mm3 0.0-0.5 [facility] BASO # 0.0 K/mm3 0.0-0.2 [facility] ID Date Data Source [id number] 07/19/2020 12:44:00 PM [facility] TSYSORDER [id number] Name Value Range Interpretation Code Description Data Rita rce(s) Supporting Document(s) URINE RBC 3-5 /hpf 0-3 H [facility] URINE WBC 1-3 /hpf 0-5 [facility] ID Date Data Source [id number] REFLEX 07/19/2020 12:37:00 PM [facility] TSYSORDER [id number] Name Value Range Interpretation Code Description Data Rita rce(s) Supporting Document(s) URINE COLOR. YELLOW [facility] URINE APPEARANCE SLIGHTY CLOUDY [facility] spital URINE GLUCOSE (UA) NEGATIVE mg/dL NEGATIVE [facility] URINE BILIRUBIN NEGATIVE NEGATIVE [facility] URINE KETONE 40(MODERATE) mg/dL NEGATIVE [facility] spital SPECIFIC GRAVITY,URINE >= 1.030 1.001-1.035 [facility] URINE BLOOD 3+(LARGE) NEGATIVE [facility] PH,URINE 6.0 5.0-9.0 [facility] URINE PROTEIN 1+(30) mg[facility] UROBILINOGEN NORMAL(0.2-1) mg/dL 0-[address] [facility] URINE NITRATE NEGATIVE NEGATIVE [facility] URINE LEUKOCYTE ESTERASE NEGATIVE NEGATIVE [facility] Procedure Social History Code Duration Value Status Description Data Source(s ) Smoking 08/05/2020 12:00:00 AM EST Current Smoker completed Curre nt Smoker [facility] Smoking 08/05/2020 12:00:00 AM EST Current Smoker completed Curre nt Smoker eCW1 ([facility]) Smoking 08/05/2020 12:00:00 AM EST Current Smoker completed Curre nt Smoker eCW1 ([facility]) Vital Signs ID Date Data Source [id number] Name Value Range Interpretation Code Description Data Source(s) Diastolic blood pressure 80 mm[Hg] 80 mm[Hg] [facility] Systolic blood pressure 124 mm[Hg] 124 mm[Hg] e CW1 ([facility]) Body temperature 98.2 [degF] 98.2 [degF] [facility]) Respiratory rate 18 /min 18 /min eCW1 ([facility]) Heart rate 88 /min 88 /min eCW1 ([facility]) Body mass index (BMI) [Ratio] 35.11 kg/m2 35.11 kg/m2 eCW[facility] ([facility]) Body height 65 [in_i] 65 [in_i] eCW1 ([facility]) Body weight 211 [lb_av] 211 [lb_av] [facility] ([facility]) Patient Treatment Plan of Care Planned Activity Planned Date Details Description Data Source (s) Acetaminophen 325 MG / Oxycodone Hydrochloride 5 MG Or al Tablet [Percocet] 08/05/2020 12:00:00 AM EST eCW1 ([facility]) Acetaminophen 325 MG / Oxycodone Hydrochloride 5 MG Or al Tablet [Percocet] 08/05/2020 12:00:00 AM EST eCW1 ([facility]) Acetaminophen 325 MG / Oxycodone Hydrochloride 5 MG Or al Tablet [Percocet] 08/05/2020 12:00:00 AM EST eCW1 ([facility])
--- OUTSIDE RECORDS SUMMARY | 2020-09-16 06:26 | CCD | Continuity of Care Document ---
Author Author [facility] Address [address] [place] [address] Phone Care Team Providers Care Needle Punch Operator Name Role Phone CLINIC, [facility] PCP Allergies, Adverse Reactions, Alerts No allergy information available. Medications No medication information available. Problems No problem information available. Procedures Procedure Date Performed Status ABD/PEL WITH IV CONTRAST July 19, 2020 completed PELVIC COMPLETE TRANS ABDOMEN July 19, 2020 completed Relevant Diagnostic Tests and/or Laboratory Data Laboratory Results Test Date/Time Result Interpretation Reference Range Result Co mment Performing Site White Blood Count July 19, 2020 7:18am 13.5 4.0-1 0.0 [facility], [address] [place] [address] Red Blood Count July 19, 2020 7:18am 5.38 4.00-5. 50 [facility], [address] [place] [address] Hemoglobin July 19, 2020 7:18am 15.8 12.0-16.0 [facility], [address] [facility] [address] Hematocrit July 19, 2020 7:18am 45.0 36.0-48.8 [facility], [address] [place] [address] Mean Corpuscular Volume July 19, 2020 7:18am 83.6 80-96 [facility], [address] [place] [address] Mean Corpuscular Hemoglobin July 19, 2020 7:18am 29.4 27.0-31.0 [facility], [address] [facility] [address] Mean Corpuscular Hgb Concent Diff July 19, 2020 7:18am 35.1 32.0-36.0 [facility], [address] [facility] [address] Red Cell Distribution Width July 19, 2020 7:18am 11.3 10.0-14.5 [facility], [address] [facility] [address] Platelet Count July 19, 2020 7:18am 261 172-450 [facility], [address] [place] [address] Mean Platelet Volume July 19, 2020 7:18am 10.4 9. 0-13.0 [facility], [address] [facility] [address] Granulocytes % (Auto) July 19, 2020 7:18am 80.2 5 0-80.0 [facility], [address] [address] Immature Granulocytes % July 19, 2020 7:18am 0.2 0.0-0.2 [facility], [address] [facility] [address] Lymphocytes % July 19, 2020 7:18am 16.1 25.0-50.0 [facility], [address] [facility] [address] Monocytes % July 19, 2020 7:18am 3.2 2.0-10.0 [facility], [address] [facility] [address] Eosinophils % July 19, 2020 7:18am 0.2 0-5.0 [facility], [address] [facility] [address] Basophils % July 19, 2020 7:18am 0.1 0.0-2.0 [facility], [address] [facility] [address] Granulocytes # July 19, 2020 7:18am 10.8 2.0-8.00 [facility], [address] [facility] [address] Immature Granulocytes # July 19, 2020 7:18am 0.0 0.0-0.2 [facility], [address] [facility] [address] Lymphocytes # July 19, 2020 7:18am 2.2 1.0-5.0 [facility], [address] [facility] [address] Monocytes # July 19, 2020 7:18am 0.4 0.10-1.20 [facility], [address] [facility] [address] Eosinophils # July 19, 2020 7:18am 0.0 0.0-0.5 [facility], [address] [facility] [address] Basophils # July 19, 2020 7:18am 0.0 0.0-0.2 [facility], [address] [facility] [address] Prothrombin Time July 19, 2020 7:18am 10.1 9.1-11 .6 [facility], [address] [facility] [address] INR International Normalized Ratio July 19, 2020 7:18am 0.97 0.87-1.06 [facility], [address] [facility] [address] Partial Thromboplastin Time - [place] July 19, 2020 7:18am 25.9 21.2-27.3 [facility], [address] [facility] [address] Urine Color July 19, 2020 7:15am [facility] Lab, [address] [facility] [address] Urine Appearance July 19, 2020 7:15am SLIGHTY CLOUDY [facility], [address] [facility] [address] Urine Glucose July 19, 2020 7:15am NEGATIVE NEGATIVE [facility], [address] [facility] [address] Urine Bilirubin July 19, 2020 7:15am NEGATIVE NEGATIV E [facility], [address] [facility] [address] Urine Ketones July 19, 2020 7:15am 40(MODERATE) NEGATI VE [facility], [address] [facility] [address] Specific [place] July 19, 2020 7:15am >= 1.030 1.001- 1.035 [facility], [address] [facility] [address] Urine Blood July 19, 2020 7:15am 3+(LARGE) NEGATIVE [facility], [address] [facility] [address] Urine pH July 19, 2020 7:15am 6.0 5.0-9.0 [facility], [address] [facility] [address] Urine Protein July 19, 2020 7:15am 1+(30) NEGATIVE [facility], [address] [facility] [address] Urine Urobilinogen July 19, 2020 7:15am NORMAL(0.2-1) 0-1 [facility], [address] [facility] [address] Urine Nitrite July 19, 2020 7:15am NEGATIVE NEGATIVE [facility], [address] [facility] [address] Urine Leukocyte Esterase July 19, 2020 7:15am NEGATIVE NEGATIVE [facility], [address] [facility] [address] Urine Microscopic RBC July 19, 2020 7:15am 3-5 0 -3 [facility], [address] [facility] [address] Urine Microscopic WBC July 19, 2020 7:15am 1-3 0 -5 [facility], [address] [facility] [address] Glucose Level July 19, 2020 7:18am 91 74-106 [facility], [address] [facility] [address] Blood Urea Nitrogen July 19, 2020 7:18am 12 7-1 8 [facility], [address] [facility] [address] Creatinine July 19, 2020 7:18am 0.87 0.6-1.0 [facility], [address] [facility] [address] Sodium Level July 19, 2020 7:18am 137 136-145 [facility], [address] [facility] [address] Potassium Level July 19, 2020 7:18am 4.0 3.5-5.1 [facility], [address] [facility] [address] Chloride Level July 19, 2020 7:18am 100 98-107 [facility], [address] [facility] [address] Carbon Dioxide Level July 19, 2020 7:18am 25 21 -32 [facility], [address] [facility] [address] Calcium Level July 19, 2020 7:18am 9.5 8.5-10.1 [facility], [address] [facility] [address] Anion Gap July 19, 2020 7:18am 12.0 5-12 [facility], [address] [facility] [address] Estimated GFR (MDRD) July 19, 2020 7:18am 72 GFR IS CALCULATED IN mL/min/1.73m2 NORMAL FUNCTION: >90MILDLY DECREASED: 60-89MILDY TO MODERATELY DECREASED: 45-59 MODERATELY TO SEVERELY DECREASED: 30-44SEVERELY DECREASED: 15-29RENAL FAILURE: <15 [facility], [address] [facility] [address] Aspartate Amino Transf (AST/SGOT) July 19, 2020 7:18am 17 15-37 [facility], [address] [facility] [address] Alanine Aminotransferase (ALT/SGPT) July 19, 2020 7:18am 29 12-78 [facility], [address] [facility] [address] Alkaline Phosphatase July 19, 2020 7:18am 66 46 -116 [facility], [address] [facility] [address] Total Bilirubin July 19, 2020 7:18am 0.4 0.2-1.0 [facility], [address] [facility] [address] Total Protein July 19, 2020 7:18am 6.8 6.4-8.2 [facility], [address] [facility] [address] Albumin July 19, 2020 7:18am 3.8 3.4-5.0 [facility], [address] [facility] [address] Lipase July 19, 2020 7:18am 65 73-393 [facility], [address] [facility] [address] Magnesium Level July 19, 2020 7:18am 1.9 1.8-2.4 [facility], [address] [facility] [address] Health Concerns No known health concerns documented Chief Complaint and Reason for Visit Reason for Visit SEVERE LOWER LEFT SIDE ABDOM INAL PAIN Encounters Encounter Location(s) Arrival/Admit Date Discharge/Depart Date Provider(s) Departed Emergency [facility] July 19, 2020 6:57a m July 19, 2020 1:48pm ALEJANDRINA NORWOOD @ Assessments No Assessments Information Available Functional Status No Functional Status information available Goals No Goals Information Available Immunizations No Immunization Information Available Mental Status No Mental Status Information Available Medical Equipment No Medical Equipment Information available Insurance Providers Guarantor YOSVANY ORDONEZ Address [address] [phone] Contact Info. Home Phone: Payer Policy Id Coverage Id Subscriber's Name Subscriber Id Effect benjamín Date Expiration Date [facility] [id number] [place] ORDONEZ Social History Assigned Sex Female Vital Signs No vital signs result information available.
[2020-09-16] MEDS ORDERED: LR 1,000 ML IV ONE (06:35)
[2020-09-16] MEDS ORDERED: ceFAZolin SOD 2 GM in IV 1 EA IV ONE (06:35)
[2020-09-16] MEDS ORDERED: propofoL 200 MG/20 ML VIAL As Ordered ONE (06:59)
[2020-09-16] MEDS ORDERED: LIDOCAINE 2% 100MG/5ML SDV (FOR ANES.) As Ordered ONE (06:59)
[2020-09-16] MEDS ORDERED: MIDAZOLAM INJ 2MG/2ML VIAL (J2250 PER 1MG) As Ordered ONE (07:04)
[2020-09-16] MEDS ORDERED: fentaNYL 100 MCG/2 ML INJECTION (J3010) As Ordered ONE (07:05)
[2020-09-16] MEDS ORDERED: SULF1TAB93 (07:07)
[2020-09-16] MEDS ORDERED: FLOM0.4C39 PO (08:12)
--- NOTE | 2020-09-16 08:35 | REP ---
INDICATION: KIDNEY STONE- KUB PRIOR TO SDC. COMPARISON: Comparison retrograde ureteral g 03 August 2020.. TECHNIQUE: Single supine film. KUB. FINDINGS: Bowel gas pattern is normal. There is a double pigtail ureteral stent in place on the left. Intrarenal nephrolithiasis is seen at the lower pole the left kidney where there is arrrrrrrrrrrrrrrrrrrrrrrrrrrrr 0.5 cm calculus. The there are several calcifications along the distal course of the stent some of which may be distal ureteral stone fragments. There are bilateral phleboliths as well. IMPRESSION: Left ureteral stent in place. Left nephrolithiasis. <Electronically signed by Pedrito Almonte > 09/16/20 [id number]
[2020-09-16] MEDS ORDERED: PERCOCET 5MG/325MG TAB As Ordered ONE (08:47)
[2020-09-16] MEDS: PERCOCET 5MG/325MG TAB PO PRN ×2 (08:50→09:20)
[2020-09-16] MEDS ORDERED: LR 1,000 ML IV SCH (09:00)
[2020-09-16] MEDS ORDERED: METOCLOPRAMIDE INJ 10MG/2ML VIAL (J2765 PER 1) IV PRN (09:00)
[2020-09-16] MEDS ORDERED: ONDANSETRON 4MG/2ML VIAL IV PRN (09:00)
[2020-09-16 09:20] VITALS: BP 126/79
--- NOTE | 2020-09-16 12:44 | RO ---
OPERATIVE NOTE DATE OF OPERATION: 09/16/2020 PREOPERATIVE DIAGNOSIS: Left kidney stone. POSTOPERATIVE DIAGNOSIS: Left kidney stone. PROCEDURE: Left extracorporal shock wave lithotripsy. SURGEON: Ac Scanlon MD. MEDIA BUYER: None. ANESTHESIA: MAC. INDICATIONS FOR PROCEDURE: This is a 40-year-old female who was found to have an obstructing 6 mm left renal pelvic junction stone a few weeks ago. She underwent a stent placement at that time and that pushed the stone into the kidney. She was brought to the operating room today for treatment of the stone. DESCRIPTION OF PROCEDURE: The patient was brought to the operating room and MAC anesthesia was administered. Prophylactic antibiotics were infused. She was placed in the supine position in preparation for a left-sided extracorporal shock wave lithotripsy. Fluoroscopy and ultrasonography were utilized to monitor stone position and fragmentation throughout the procedure. Shock wave treatment was delivered to the left-sided kidney stone ungated. There were no arrhythmias. The stone did appear to fragment well. After 2500 shocks, the procedure was concluded. The patient was awakened from anesthesia and transported to the recovery room in stable condition. ESTIMATED BLOOD LOSS: 0 mL. COMPLICATIONS: None. SPECIMENS: None. PLAN: The patient will follow-up in the urology clinic in a few weeks for stent removal. We will get follow-up imaging prior to removing her stent.
== END 2020-09-16 09:59 | disposition home or self-care (01) ==
LOC: M SDC 06:22
PROVIDERS: ATTEND Urology
DX: N20.0 Calculus of kidney (principal); F17.210 Nicotine dependence, cigarettes, uncomplicated; F90.9 Attention-deficit hyperactivity disorder, unspecified type; Z79.899 Other long term (current) drug therapy
CPT/HCPCS: 50590; 74018; 81025; J0690; J2250; J3010